=== PATIENT | male | born 2000 | race Asian ===

== ENCOUNTER 2023-01-07 13:18 | Observation (INO) | payer BC ==
[~2023-01-07] VITALS: Ht 172.7 cm; Wt 82.2 kg
[2023-01-07] VITALS (10 sets, daily range): BP systolic 96–193; BP diastolic 56–79; TEMP 97.8–98.2; Ht 172.7 cm; Wt 82.2 kg
[2023-01-07 13:49] LABS: PLATELET COUNT 171 K/uL (142-355)
[2023-01-07 13:59] LABS: POTASSIUM 3.9 mmol/L (3.6-5.2); SODIUM 141 mmol/L (136-145)
[2023-01-08] VITALS: BP 113/79; TEMP 98.2
[2023-01-08 03:44] VITALS: BP 103/52; TEMP 98.2
[2023-01-08 08:00] VITALS: BP 107/66; TEMP 98.3
[2023-01-08 11:28] VITALS: BP 110/69; TEMP 98.2
== END 2023-01-08 15:10 | disposition home or self-care (01) ==
LOC: ED 13:18 → MED/SURG 14:41
PROVIDERS: Emergency Medicine; ADMIT Internal Medicine; ATTEND Internal Medicine
DX: R00.0 Tachycardia, unspecified (principal); R07.89 Other chest pain; M62.82 Rhabdomyolysis
CPT/HCPCS: 80053; 80307; 82550; 84484; 85027; 93005; 96361; 96374; 96375; 99221; 99284; G0378; J1650; J3490